=== PATIENT | female | born 1930 | race Caucasian/White ===

== ENCOUNTER 2017-02-15 10:50 | Emergency (ER) | payer MEDICARE ==
[~2017-02-15] VITALS: Ht 160 cm; Wt 77.1 kg
[~2017-02-15 10:50] MED LIST: /AUGM875TA; /PANT40TA; ACET65TA; AMLO10TA; AMLO10TAB PO; ASPI81TA45 PO; ASPI81TA83 OR; BABY81CH; CIPR25SS; CIPR25SS OR; COLA100C2; COLA100C2 OR; FURO40TA2 OR; GAS-80CH; HYDR25TA6; LASI40TA PO; MAGN500T2; METO10TA2; MIRALEX PO; NITR0.4S; POTA20TA2; POTA20TA2 OR; POTA20TA2 PO; PRIL20CA; TAP; TAPAZOLE; TAPAZOLE PO; TYLENOL #3; VICO5TAB OR; [UNRECOGNIZED DRUG - OTHER]; [UNRECOGNIZED DRUG - OTHER]; ferrous gluconate PO; methimazole; tapazole; tapazole PO
[2017-02-15] MEDS ORDERED: LOPR1TAB6 PO (11:01)
[2017-02-15] MEDS ORDERED: XARE15TA PO (11:01)
--- NOTE | 2017-02-15 11:51 | REP ---
Clinical: Trauma. Fall. Technique: AP view of the pelvis with neutral and frog lateral views of the left hip. Findings: Osteopenia and degenerative changes are appreciated. No acute fracture or dislocation identified. Impression: Osteopenia and degenerative changes. No acute fracture or dislocation. Signed by Nakul Jung MD 02/15/2017 11:42 A
[2017-02-15] MEDS ORDERED: SOMA350T PO (13:28)
[2017-02-15] MEDS ORDERED: KETO10TAB PO (13:28)
[2017-02-15] MEDS ORDERED: IBUPROFEN 600 MG TAB PO ONE (13:30)
[2017-02-15] MEDS ORDERED: CARISOPRODOL 350 MG TAB PO ONE (13:30)
[2017-02-15] MEDS ORDERED: CIPROFLOXACIN 500 MG TAB PO ONE (13:30)
[2017-02-15 13:43] VITALS: BP 173/78
== END 2017-02-15 14:29 | disposition home or self-care (01) ==
LOC: M ED 11:19
DX: S73.102A Unspecified sprain of left hip, initial encounter (principal); W10.8XXA Fall (on) (from) other stairs and steps, initial encounter; Y92.018 Other place in single-family (private) house as the place of occurrence of the external cause; Y93.89 Activity, other specified; Y99.8 Other external cause status; N39.0 Urinary tract infection, site not specified; I10 Essential (primary) hypertension; I50.9 Heart failure, unspecified; E03.9 Hypothyroidism, unspecified; Z85.038 Personal history of other malignant neoplasm of large intestine; Z79.899 Other long term (current) drug therapy; Z79.01 Long term (current) use of anticoagulants; Z88.5 Allergy status to narcotic agent; Z88.8 Allergy status to other drugs, medicaments and biological substances; Z87.891 Personal history of nicotine dependence

== ENCOUNTER → 2017-10-01 | Outpatient (CLI) | payer MEDICARE ==
[~2017-10-01] MED LIST changes: +KETO10TAB PO; +LOPR1TAB6 PO; +SOMA350T PO; +XARE15TA PO
--- NOTE | 2017-10-02 11:40 | REP ---
PET/CT: HISTORY: The patient has a prior history of colon carcinoma. Recent CT studies of the chest abdomen pelvis show bulky lymphadenopathy. COMPARISONS: Comparison CT chest from September 25, [address] abdomen September 23, 2017 done at [facility]. TECHNIQUE: 58 minutes following the intravenous injection of a 9.7 mCi dose of F-18 FDG, three-dimensional PET scintigraphy is acquired from the skull base to the proximal thighs. Triplanar noncontrast CT scanning is acquired through the same anatomic range for attenuation correction, and image registration with scan parameters optimized to minimize radiation exposure to the patient. PET scintigraphy and CT datasets were fused and displayed on a workstation with multiplanar and projection display capability. PET/CT FINDINGS: There is extensive bulky hypermetabolic lymphadenopathy above and below the diaphragm. This extends from the left supraclavicular lymph node chain through the left mediastinum posteriorly, includes the retrocrural lymph node chain as well as celiac axis and periportal nodes and extensive periaortic and pericaval adenopathy is seen. There is bilateral common iliac adenopathy. All of this is hypermetabolic. There is also hypermetabolic right internal mammary adenopathy with several small nodes. There is a focus of hypermetabolic uptake in the hilus of the spleen. A small hypermetabolic left epicardial lymph node. There is a hypermetabolic pericolonic lymph node in the central anterior pelvis which measures 15 mm in diameter. Maximum standard uptake value in the left paracolic lymph node is 10.0. A maximum standard uptake value in the extensive bulky adenopathy ranges up to 35-40. The highest SUVs are in the para-aortic adenopathy. Standard uptake value in the left supraclavicular adenopathy is 22.5. There are two adjacent hypermetabolic nodules in the left lower lobe of the lung with maximum standard uptake value 4.6. There is a non-hypermetabolic small sub-centimeter nodule in the lingula. No other abnormal hypermetabolic uptake is seen in the lung parenchyma. There is a 1 cm slightly hypermetabolic right axillary lymph node. There is moderate left-sided hydronephrosis. IMPRESSION: Markedly hypermetabolic metastatic pattern predominantly affecting lymph nodes from the neck to the pelvis. There is also a pericolonic lymph node in the central lower pelvis. There are presumed pulmonary metastases. Differential possibilities would include lymphoma versus colon versus other metastatic disease. There is moderate left-sided hydronephrosis. Signed by Kt Huffman MD 10/03/2017 11:13 A
== END ==
LOC: M PLARAD 11:15
PROVIDERS: ATTEND Internal Medicine
DX: R59.1 Generalized enlarged lymph nodes (principal); R91.8 Other nonspecific abnormal finding of lung field
CPT/HCPCS: 78815; A9552

== ENCOUNTER → 2017-10-17 | Outpatient (REF) | payer MEDICARE ==
[2017-10-17 13:59] LABS: INR 1.66
== END ==
LOC: M LAB REF 12:57
PROVIDERS: ATTEND Internal Medicine Medical Oncology
DX: I88.0 Nonspecific mesenteric lymphadenitis (principal); R59.0 Localized enlarged lymph nodes

== ENCOUNTER → 2017-11-05 | Outpatient (CLI) | payer MEDICARE ==
[~2017-11-05] MED LIST changes: +LIDOCAINE 1% MDV 20ML VIAL As Ordered ONE
--- NOTE | 2017-11-05 18:18 | REP ---
LIMITED ABDOMINAL ULTRASOUND: Limited abdominal ultrasound performed prior to a scheduled ultrasound guided biopsy of a periaortic mass. Large hypoechoic periaortic mass is noted measuring approximately 15.8 x 8.0 x 10.8 cm. There is moderate calcification of the abdominal aorta. No definite internal blood flow is seen within the mass with duplex Doppler evaluation. There is left hydronephrosis. Instead of using ultrasound we will use CT guidance for biopsy of this periaortic mass. Signed by Julito Kahn MD 11/06/2017 08:26 P
--- NOTE | 2017-11-06 06:45 | REP ---
CT GUIDED LEFT RETROPERITONEAL LYMPH NODE BIOPSY: The procedure was performed under the direct supervision of Dr. Kahn. The patient has a history of para-aortic adenopathy seen on the previous PET scan dated 09/21/2017. The risks and benefits of the procedure were explained to the patient and informed consent was obtained. The left para-aortic adenopathy was localized using CT guidance. The skin was prepped and draped in a sterile fashion. 1% Xylocaine was used as a local anesthetic. Using CT guidance a 19/20 gauge coaxial needle biopsy system was inserted and advanced into the mass. Seven core biopsy samples were obtained and sent to the lab. The patient tolerated the procedure well and there were no immediate complications. After the appropriate amount of monitored convalescences the patient was discharged from the department.
== END ==
LOC: M RADPRO 08:04
PROVIDERS: ATTEND Internal Medicine Medical Oncology
DX: C85.10 Unspecified B-cell lymphoma, unspecified site (principal); R59.0 Localized enlarged lymph nodes; Z85.038 Personal history of other malignant neoplasm of large intestine; Z92.3 Personal history of irradiation; Z92.21 Personal history of antineoplastic chemotherapy; Z87.891 Personal history of nicotine dependence; Z86.79 Personal history of other diseases of the circulatory system; Z88.5 Allergy status to narcotic agent; Z88.8 Allergy status to other drugs, medicaments and biological substances; Z79.899 Other long term (current) drug therapy